=== PATIENT | female | born 1950 | race Caucasian/White ===

== ENCOUNTER → 2019-12-07 08:57 | Outpatient (CLI) | payer OTHER, SELFPAY ==
--- NOTE | 2019-12-07 | DI.RAD.S_ITS ---
PROCEDURE: [place] JOINT INJECTION LARGE RT INDICATIONS: PAIN IN RIGHT SHOULDER AND RIGHT HIP TECHNIQUE: The indications, alternatives, benefits, risks, and complications of the procedure were explained to the patient. Written informed consent was obtained and placed in the chart. The patient was placed in an appropriate position on the fluoroscopy table, and a site was chosen for percutaneous access under fluoroscopic guidance. The site was prepped and draped in a sterile fashion. Local anesthetic was administered using a 1% lidocaine solution. A hypodermic or spinal needle was then used to access the symptomatic joint. Intra-articular location of the needle tip was confirmed by injecting a small amount of contrast, followed by steroid administration. The needle was then withdrawn, and a bandage applied to the puncture site. FINDINGS: Joint injected: Right hip Medications injected: 1 mL of 40 mg/mL Kenalog and 0.5% Ropivacaine mixture. Patient's pain before injection: 3 out of 10. Patient's pain after injection: 0 out of 10. Complications: None. IMPRESSION: Successful fluoroscopically guided administration of steroid and anaesthetic solution into the right hip joint. Dictated by: Arpita Contreras MD, PhD on 12/07/2019 at 12:25 Approved by: Arpita Contreras MD, PhD on 12/07/2019 at 12:25
--- NOTE | 2019-12-07 | DI.MRI.S_ITS ---
PROCEDURE: MR SHOULDER RT WO CON INDICATIONS: PAIN IN RIGHT SHOULDER TECHNIQUE: Noncontrast oblique coronal T2 fast spin echo with fat saturation, oblique sagittal T1 spin echo and T2 fast spin echo with fat saturation, axial T1 spin echo and T2 fast spin echo with fat saturation through the shoulder. COMPARISON: None. FINDINGS: Image quality: Diagnostic. Rotator cuff: There is tendinopathy of the supraspinatus, infraspinatus, and subscapularis. A full-thickness tear is demonstrated in the distal supraspinatus at its insertion involving the anterior fibers measuring approximately 1 cm in anteroposterior dimension. There is retraction of the torn fibers by approximately 0.8 cm. Articular surface partial-thickness tearing is also demonstrated within the posterior fibers of the supraspinatus including a focus of high-grade tearing approximately 1.6 cm from its insertion measuring 0.3 cm in anteroposterior dimension. The infraspinatus demonstrates mild articular surface partial-thickness tearing. The subscapularis demonstrates mild intrasubstance partial tearing distally. The teres minor appears intact. There is mild atrophy of the supraspinatus muscle. Bones and bursae: No bone marrow contusions or fractures. There is moderate acromioclavicular joint degeneration. The acromion demonstrates conventional anatomy, without an os acromiale. A small amount of subacromial-subdeltoid bursal fluid is present. There is mild glenohumeral joint degeneration. A small glenohumeral joint effusion is noted. Capsule and soft tissues: There is circumferential degenerative tearing of the labrum. In the absence of intra-articular contrast, the glenohumeral ligaments appear intact. The long head of the biceps tendon demonstrates tendinopathy proximally with mild intrasubstance partial tearing as well as mild medial displacement secondary to partial tearing of the subscapularis tendon. The rotator interval appears normal, without fibrosis. IMPRESSION: 1. Full-thickness tear involving the anterior fibers of the supraspinatus at its insertion. High-grade focal partial thickness articular surface tearing is also demonstrated more posteriorly in the supraspinatus tendon which demonstrates tendinopathy. There is mild atrophy of the supraspinatus muscle. 2. Tendinopathy and mild partial tearing of the infraspinatus and subscapularis. 3. Moderate acromioclavicular joint degeneration with a small amount of subacromial/subdeltoid bursal fluid. 4. Circumferential degenerative tearing of the labrum. 5. Tendinopathy and mild intrasubstance partial tearing of the proximal biceps tendon which demonstrates mild medial displacement secondary to partial tearing of the subscapularis. 6. Mild glenohumeral joint degeneration with a small joint effusion. Dictated by: Mack Morin M.D. on 12/07/2019 at 12:52 Approved by: Mack Morin M.D. on 12/07/2019 at 13:28
== END ==
PROVIDERS: PCP Internal Medicine; Referring Provider Internal Medicine; Visit Provider Orthopaedic Surgery Sports Medicine
DX: M25.511 Pain in right shoulder (principal); M25.551 Pain in right hip; M75.121 Complete rotator cuff tear or rupture of right shoulder, not specified as traumatic; M19.011 Primary osteoarthritis, right shoulder; S43.491A Other sprain of right shoulder joint, initial encounter; S46.111A Strain of muscle, fascia and tendon of long head of biceps, right arm, initial encounter
CPT/HCPCS: 20610; 73221; 77002

== ENCOUNTER → 2020-06-14 12:31 | Outpatient (CLI) | payer OTHER, SELFPAY ==
--- NOTE | 2020-06-14 12:34 | DI.RAD.S_ITS ---
PROCEDURE: [place] JOINT INJECTION LARGE RT INDICATIONS: Pain in right hip COMPARISON: [facility], , [place] JOINT INJECTION LARGE RT, 12/07/2019, 9:08. TECHNIQUE: The indications, alternatives, benefits, risks, and complications of the procedure were explained to the patient. Written informed consent was obtained and placed in the chart. The patient was placed in an appropriate position on the fluoroscopy table, and a site was chosen for percutaneous access under fluoroscopic guidance. The site was prepped and draped in a sterile fashion. Local anesthetic was administered using a 1% lidocaine solution. A hypodermic or spinal needle was then used to access the symptomatic joint. Intra-articular location of the needle tip was confirmed by injecting a small amount of contrast, followed by steroid administration. The needle was then withdrawn, and a bandage applied to the puncture site. FINDINGS: Joint injected: Right hip Medications injected: 6 mL of 40 mg/mL Kenalog and 0.5% Ropivacaine mixture. Complications: None. IMPRESSION: Successful fluoroscopically guided administration of steroid and anaesthetic solution into the right hip joint. Dictated by: Blayne Davidson M.D. on 06/14/2020 at 14:35 Approved by: Blayne Davidson M.D. on 06/14/2020 at 14:36
== END ==
PROVIDERS: PCP Internal Medicine; Referring Provider Orthopaedic Surgery; Visit Provider Orthopaedic Surgery
DX: M25.551 Pain in right hip (principal)
CPT/HCPCS: 20610; 77002

== ENCOUNTER → 2021-02-27 08:08 | Outpatient (CLI) | payer MEDICARE, OTHER, SELFPAY ==
--- NOTE | 2021-02-27 | DI.RAD.S_ITS ---
PROCEDURE: [place] JOINT INJECTION LARGE RT INDICATIONS: Unilateral primary osteoarthritis, right hip COMPARISON: [facility], , [place] JOINT INJECTION LARGE RT, 06/14/2020, 14:07. TECHNIQUE: The indications, alternatives, benefits, risks, and complications of the procedure were explained to the patient. Written informed consent was obtained and placed in the chart. The patient was placed in an appropriate position on the fluoroscopy table, and a site was chosen for percutaneous access under fluoroscopic guidance. The site was prepped and draped in a sterile fashion. Local anesthetic was administered using a 1% lidocaine solution. A hypodermic or spinal needle was then used to access the symptomatic joint. Intra-articular location of the needle tip was confirmed by injecting a small amount of contrast, followed by steroid administration. The needle was then withdrawn, and a bandage applied to the puncture site. FINDINGS: Joint injected: Right hip joint Medications injected: 1 mL of 40 mg/mL Kenalog and 3 mL of 0.5% Ropivacaine mixture. Patient's pain before injection: 0-2 out of 10. Patient's pain after injection: 0 out of 10. Complications: None. IMPRESSION: Successful fluoroscopically guided administration of steroid and anaesthetic solution into the right hip joint. Dictated by: Tyrel Duncan M.D. on 03/03/2021 at 16:14 Approved by: Tyrel Duncan M.D. on 03/03/2021 at 16:15
== END ==
PROVIDERS: PCP Internal Medicine; Referring Provider Counselor Mental Health; Visit Provider Counselor Mental Health
DX: M16.11 Unilateral primary osteoarthritis, right hip (principal)
CPT/HCPCS: 20610; 77002